=== PATIENT | female | born 1955 | race Caucasian/White ===

== ENCOUNTER → 2016-05-19 | Outpatient (CLI) | payer MEDICARE ==
--- NOTE | ~2016-05-19 | PUL ---
PATIENT'S NAME: SELENA SIDHU [facility] AGE: 61 Y [address] ROOM: [place] [id number] LOCATION: [facility] ADMIT DATE: 05/19/2016 Pulmonary DISCHARGE DATE: FAMILY PHYSICIAN: Marco Cano MD ATTENDING PHYSICIAN: Marco Cano DATE OF PROCEDURE: Sleep Study DATE OF PROCEDURE: 05/19/16 TECH: SANDRA Martinez TEST #: SD# [id number] TECHNICAL PARAMETERS: The patient was studied using the International 10/20 measuring system. While the patient was studied, there was continuous monitoring of EEG(8 leads), EOG(2 leads), EKG(3 leads), submental EMG(3 leads), tibial(4 leads), uncalibrated respiratory inductive plethysmography (RIP) for thoracic and abdominal effort, oral and nasal airflow with a thermocouple and pressure transducer, and oximetry. The agricultural research technician also performed visual and auditory observations noting things like body position, patient's status, breath sounds, artifact, snoring level and patient comments. Continuous sound was monitored using a 2-way speaker system and video monitoring was performed using an infrared camera. Review of the entire study was performed epoch by epoch utilizing a single epoch and multiple epoch capability sleep system. MEDICAL HISTORY: Patient is a 61-year-old overweight woman with daytime sleepiness and snoring. She has a prior history of obstructive sleep apnea. SLEEP STAGE SUMMARY: The patient was studied for 450 minutes of which she slept 271 minutes. She fell asleep in 13 minutes and slept for 60% of the night. Sleep architecture revealed a decline in slow wave and REM sleep. RESPIRATORY SUMMARY: Oxygen saturations ranged from 80-92% and were below 88% for 5 minutes. There were 30 apneas and 22 hypopneas for an apnea/hypopnea index mildly elevated at 11.5 events per hour. The majority of the events occurred too late in the study to allow for initiation of CPAP. EKG SUMMARY: Average heart rate during sleep 68 beats per minute. LIMB MOVEMENT SUMMARY: Occasional periodic limb movements were noted these don't appear to be clinically relevant. SUMMARY: Mild obstructive sleep apnea. PATIENT'S NAME: SELENA SIDHU [facility] AGE: 61 Y [address] ROOM: [place] [id number] LOCATION: [facility] ADMIT DATE: 05/19/2016 Pulmonary DISCHARGE DATE: FAMILY PHYSICIAN: Marco Caon MD ATTENDING PHYSICIAN: Marco Cano PLAN: Patient will receive results from the ordering provider. MD ANALY BAZAN/ /[id number] dtt: 06/05/16 1017 , Hong Sanchez. dtd: 05/22/16 1048
== END | disposition disaster alternative care site (69) ==
LOC: GSLP 20:06
DX: G47.30 Sleep apnea, unspecified (principal); G47.33 Obstructive sleep apnea (adult) (pediatric)